=== PATIENT | female | born 1955 | race American Indian/Alaskan Native ===

== ENCOUNTER 2018-03-10 23:22 | Emergency (ER) | payer MEDICAID ==
[~2018-03-10 23:22] MED LIST: ADRENALIN ONE
--- NOTE | 2018-03-10 23:34 | Emergency Department Report ---
ED CPR HPI - General Chief Complaint: Cardiac Arrest/CPR Stated Complaint: CARDIAC ARREST Time Seen by Provider: 03/10/18 23:24 Source: EMS (verbal report received from EMS.ems notes not available at time of chart dictation) Limitations: Altered Mental Status - History of Present Illness Initial Comments: This is a 75-year-old female, unknown to this provider previously, with a reported history of cancer, as per EMS, brought to the hospital by EMS for out of hospital cardiac arrest. EMS verbally reported the patient had been "weak" all day, as per family, and then prior to arrival, slumped over and became unresponsive. EMS reports coffee-ground emesis and hypoglycemia. EMS placed a combination tube, gave aggressive chest compressions, the left lower extremity intraosseous line, epinephrine and Narcan in the field. They report the patient's initial rhythm was asystolic. At no point in time did the patient develop a shockable rhythm. Upon arrival to the emergency room, patient is pulseless, pupils fixed and dilated, and did not react to light. The patient received standard CPR. She receives high-quality CPR. She received standard ACLS interventions. Un fortunately, shockable rhythm is not obtained, and pulses are not obtained. Resuscitation efforts were terminated secondary to medical futility. MD Complaint: stopped breathing, collapsed during rest -: minute(s) Place: home Initial Findings in the Field: no pulse, PEA ROSC in the Field: No Treatments Prior to Arrival: other airway device, chest compressions, epinephrine mgs #, glucose, other ED Review of Systems ROS: Stated complaint: CARDIAC ARREST Other details as noted in HPI Comment: Unobtainable due to pts medical conditions ED Physical Exam - General Limitations: Altered Mental Status, Other (intubated, GCS of 3) General appearance: other (patient is nonverbal) - Head Head exam: Present: other (appears cachectic and wasted) - Eye Eye exam: Present: other (pupils are fixed and dilated) - ENT ENT exam: Present: other (combination tube noted in the oropharynx. Coffee- ground emesis noted.) - Neck Neck exam: Present: normal inspection - Respiratory Respiratory exam: Absent: normal lung sounds bilaterally (no breath sounds appreciated.) - Cardiovascular Cardiovascular Exam: Absent: regular rate (patient is pulseless.) - GI/Abdominal GI/Abdominal exam: Present: soft (scaphoid abdomen) - Extremities Exam Extremities exam: Present: pedal edema, other (intraosseous line noted in the left lower extremity) - Back Exam Back exam: Present: normal inspection - Neurological Exam Neurological exam: Present: other (patient is nonverbal) - Skin Skin exam: Present: dry ED Medical Decision Making - Medical Decision Making Differential diagnosis, including not limited to: Hypoglycemic arrest, narcotic overdose, acute coronary syndrome, pulmonary embolus Critical care attestation.: If time is entered above; I have spent that time in minutes in the direct care of this critically ill patient, excluding procedure time. ED Disposition Clinical Impression: Cardiac arrest Disposition: DC-[id number] Is pt being admited?: No Does the pt Need Aspirin: No Condition: Undetermined
== END 2018-03-11 04:00 ==
LOC: EDBD → ED 23:22
DX: I46.9 Cardiac arrest, cause unspecified (principal)
CPT/HCPCS: 92950; 99285; J0171